=== PATIENT | male | born 1965 | race Caucasian/White ===

== ENCOUNTER 2020-04-30 08:46 | Outpatient (CLI) | payer MEDICAID ==
[~2020-04-30 08:46] MED LIST: ACID1TAB7 PO; CLIN300C8 PO; LEVO500T47 PO
== END 2020-04-30 23:59 | disposition home or self-care (01) ==
LOC: WOUND 08:46
PROVIDERS: ATTEND Internal Medicine
DX: T81.32XA Disruption of internal operation (surgical) wound, not elsewhere classified, initial encounter (principal); C18.0 Malignant neoplasm of cecum; N49.3 Fournier gangrene; F17.210 Nicotine dependence, cigarettes, uncomplicated; E66.01 Morbid (severe) obesity due to excess calories; Z68.30 Body mass index [BMI] 30.0-30.9, adult; Z88.0 Allergy status to penicillin; Z79.82 Long term (current) use of aspirin; Y83.8 Other surgical procedures as the cause of abnormal reaction of the patient, or of later complication, without mention of misadventure at the time of the procedure; Y92.238 Other place in hospital as the place of occurrence of the external cause
CPT/HCPCS: 97597; 99203; 99213; G0463